=== PATIENT | male | born 1940 | race Caucasian/White ===

== ENCOUNTER 2017-03-15 02:52 | Emergency (ER) | payer MEDICARE, BC ==
[2017-03-15] MEDS ORDERED: NITROGLYCERIN 0.4 MG TAB SL ONE (02:57)
[2017-03-15] MEDS ORDERED: ASPIRIN 81 MG CHEWABLE CTB ONE (02:57)
[2017-03-15] MEDS: SODIUM CHLORIDE 0.9% FLUSH 10 ML SOL IV PRN ×2 (03:00→04:01)
[2017-03-15] MEDS ORDERED: NITROGLYCERIN 0.4 MG TAB SL PRN (03:07)
[2017-03-15] MEDS ORDERED: MORPHINE SULFATE 10 MG/ML SOL IV PRN (03:07)
[2017-03-15] MEDS ORDERED: ASPIRIN 81 MG CHEWABLE CTB PO STA (03:07)
[2017-03-15 03:17] LABS: BASOPHILS % (AUTO) 1 % (0-3); EOSINOPHILS % (AUTO) 2 % (0-9); HEMATOCRIT 40 % (39-53); MEAN CORPUSCULAR HGB CONC 35.6 gm/dl (32.0-36.0); MEAN CORPUSCULAR VOLUME 87 fL (80-100); MONOCYTES % (AUTO) 8.3 % (0-12)
[2017-03-15 03:18] VITALS: TEMP 97.6
[2017-03-15 03:31] LABS: ALBUMIN 3.2 gm/dl (3.4-5.0); CALCIUM 8.9 mg/dl (8.5-10.1); POTASSIUM 4.2 mMol/L (3.5-5.1)
[2017-03-15] MEDS ORDERED: HEPARIN PREMIX 25,000 U/250 ML SOL IV PRN (03:56)
[2017-03-15] MEDS ORDERED: HEPARIN SODIUM 5000 U/ML SOL IV ONE (03:56)
[2017-03-15] MEDS ORDERED: HEPARIN SODIUM 5000 U/ML SOL ONE (03:59)
[2017-03-15 04:34] VITALS: BP 153/76; PULSE 55; RESP 17; O2SAT 100
== END 2017-03-15 04:28 | disposition short-term general hospital (02) | DRG 282 ==
LOC: ED 02:52
DX: I21.4 Non-ST elevation (NSTEMI) myocardial infarction (principal); I50.9 Heart failure, unspecified
CPT/HCPCS: 71010; 80053; 82550; 83880; 84484; 85025; 93005; 96374; 99291; J1644

== ENCOUNTER 2019-03-19 10:27 | Outpatient (CLI) | payer MEDICARE, BC | END 2019-03-19 10:28 | disposition home or self-care (01) | LOC: CONVCARE 10:28 ==

== ENCOUNTER 2019-03-20 22:07 | Emergency (ER) | payer MEDICARE, BC ==
[2019-03-20 22:22] VITALS: BP 175/88; PULSE 63; RESP 20; TEMP 98.2; O2SAT 98
[2019-03-20 22:37] LABS: APPEARANCE,URINE Cloudy; BILIRUBIN,URINE 1+ (NEGATIVE); COLOR,URINE Dark yellow; GLUCOSE, URINE (UA) NEGATIVE (NEGATIVE); KETONES,URINE TRACE (NEGATIVE); LEUKOCYTE ESTERASE ,URINE 1+ (NEGATIVE); NITRATE,URINE POSITIVE (NEGATIVE); OCCULT BLOOD,URINE 3+ (NEG-TRACE); PH,URINE 5.5
[2019-03-20 22:52] LABS: BACTERIA UNABLE (< 1+); CRYSTALS UNABLE (0-3 AVE/HPF); EPITHELIAL CELLS UNABLE (SQUAMOUS); ICTOTEST,URINE NEGATIVE (NEGATIVE); RBC,URINE TNTC (0-3AV/HPF); WBC,URINE TNTC (0-5AV/HPF)
[2019-03-20] MEDS ORDERED: SULFAMETHOXAZOLE/TRIMETHOPRI 800/160 MG PO ONE (23:22)
[2019-03-20] MEDS ORDERED: SULFAMETHOXAZOLE/TRIMETHOPRI 800/160 MG ONE (23:28)
== END 2019-03-20 23:40 | disposition home or self-care (01) | DRG 696 ==
LOC: ED 22:07
DX: R31.0 Gross hematuria (principal); N39.0 Urinary tract infection, site not specified; R39.15 Urgency of urination
CPT/HCPCS: 81001; 87077; 87088; 87186; 99282; A9270-GY